=== PATIENT | male | born 1960 | race Two or more races ===

== ENCOUNTER 2021-08-02 09:29 | Emergency (ER) | payer MEDICAID, OTHER ==
[~2021-08-02] VITALS: Ht 182.9 cm; Wt 104.3 kg
[2021-08-02 10:18] VITALS: BP 140/76
[2021-08-02] MEDS ORDERED: ACETAMINOPHEN 500 MG TAB PO ONE (11:30)
== END 2021-08-02 11:51 | disposition home or self-care (01) ==
LOC: ER 09:29
DX: S46.911A Strain of unspecified muscle, fascia and tendon at shoulder and upper arm level, right arm, initial encounter (principal); S00.31XA Abrasion of nose, initial encounter; M19.011 Primary osteoarthritis, right shoulder; V49.9XXA Car occupant (driver) (passenger) injured in unspecified traffic accident, initial encounter; Y93.89 Activity, other specified; Y92.488 Other paved roadways as the place of occurrence of the external cause; Y99.8 Other external cause status
CPT/HCPCS: 70160; 73030

== ENCOUNTER 2022-09-23 11:49 | Emergency (ER) | payer MEDICAID ==
[2022-09-23 13:08] LABS: Basophils # (auto) 0.1 10 ^3/uL (0-0.2); Eosinophils # (auto) 0.2 10 ^3/uL (0-0.8); Lymphocytes # (auto) 1.1 10 ^3/uL (0.4-5.4); Mean Corpuscular Hemoglobin 34.1 pg (28.0-32.0); Monocytes # (auto) 0.4 10 ^3/uL (0-1.3); Monocytes % (auto) 7.8 % (0.0-12.0); Neutrophils % (auto) 65.1 % (37.0-80.0); Red Cell Distribution Width 13.6 % (11.8-14.3)
[2022-09-23 13:10] LABS: Basophils % (auto) 1.1 % (0.0-2.0); Eosinophils % (auto) 3.1 % (0.0-7.0); Hematocrit 43.8 % (41.0-53.0); Hemoglobin 15.2 g/dL (13.5-17.5); Lymphocytes % (auto) 22.9 % (10.0-50.0); Mean Corpuscular Hgb Conc. 34.7 g/dL (32.0-36.0); Mean Corpuscular Volume 98.3 fL (80.0-100.0); Neutrophils # (auto) 3.2 10 ^3/uL (1.6-8.6); Nucleated Red Blood Cells % 0.3 %; Red Blood Cells 4.46 10^6/uL (4.5-5.90)
[2022-09-23 13:27] LABS: Albumin 4.9 g/dL (3.4-5.0); Calcium 8.9 mg/dL (8.5-10.1); Magnesium 2.2 mg/dL (1.6-2.6)
[2022-09-23 13:31] LABS: BUN/Creatinine Ratio 15.2; Bilirubin, Total 0.7 mg/dL (0.2-1.0); Total Protein 6.9 g/dL (6.4-8.2)
[2022-09-23] MEDS ORDERED: ONDANSETRON HCL 4 MG/2 ML VIAL IV PRN (14:00)
[2022-09-23] MEDS ORDERED: TEMAZEPAM 15 MG CAP PO PRN (14:00)
[2022-09-23] MEDS ORDERED: HYDROcodone-ACET 5/325MG TAB PO PRN (14:00)
[2022-09-23] MEDS ORDERED: MORPHINE SULFATE INJ 2 MG/ml SYRG IV PRN (14:00)
[2022-09-23] MEDS ORDERED: ACETAMINOPHEN 325 MG TAB PO PRN (14:00)
[2022-09-23] MEDS ORDERED: LORazepam 0.5 MG TAB PO PRN (14:00)
[2022-09-23] MEDS ORDERED: SODIUM CHLORIDE 0.9% 1,000 ML IV SCH (14:00)
[2022-09-23] MEDS ORDERED: DOCUSATE SOD 100 MG CAP PO PRN (14:00)
[2022-09-23 17:15] VITALS: BP 160/82
== END 2022-09-23 17:24 | disposition home or self-care (01) ==
LOC: ER 11:49 → UNDOADMIN 14:23 → OVERFLOW 14:23
DX: R10.13 Epigastric pain (principal); E78.5 Hyperlipidemia, unspecified; I10 Essential (primary) hypertension; F12.10 Cannabis abuse, uncomplicated
CPT/HCPCS: 36415; 74176; 80053; 83690; 83735; 85025